=== PATIENT | male | born 1995 | race Caucasian/White ===

== ENCOUNTER 2017-01-01 07:14 | Emergency (ER) | payer OTHER ==
[~2017-01-01] VITALS: Ht 193 cm; Wt 117.9 kg
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
--- NOTE | 2017-01-01 08:49 | RADIOLOGY REPORT ---
EXAMINATION: LEFT SHOULDER AND SCAPULA CLINICAL INFORMATION: Pain, injury. COMPARISON: None TECHNIQUE: 4 views of the left shoulder, 2 views of the scapula. FINDINGS: Bone mineral density is maintained without evidence of fracture or dislocation. No focal osseous lesions are seen. Joint space is maintained without productive or erosive changes. IMPRESSION: Unremarkable exam. If there is concern for shoulder separation, AC joints with and without weightbearing should be considered.
[2017-01-01] MEDS ORDERED: IBUPROFEN800 M1 PO (08:52)
[2017-01-01 09:01] VITALS: BP 122/85
== END 2017-01-01 09:01 ==
LOC: ERH 07:14
DX: S43.402A Unspecified sprain of left shoulder joint, initial encounter (principal); S40.012A Contusion of left shoulder, initial encounter; V18.0XXA Pedal cycle driver injured in noncollision transport accident in nontraffic accident, initial encounter; Y92.9 Unspecified place or not applicable; Y93.9 Activity, unspecified
CPT/HCPCS: 73010-LT; 73030-LT; 96372; J1885